=== PATIENT | male | born 1995 | race African-American/Black ===

== ENCOUNTER 2017-01-16 17:37 | Inpatient (IN) | payer OTHER ==
[~2017-01-16] VITALS: Ht 190.5 cm; Wt 64.0 kg
[2017-01-16 17:38] VITALS: BP 182/88; PULSE 124; RESP 20; TEMP 99; O2SAT 99
[2017-01-16 18:29] VITALS: BP 144/79; PULSE 110; RESP 21; O2SAT 100
--- NOTE | 2017-01-16 19:27 | RADRPT ---
EXAM DATE/TIME: 01/16/2017 19:16 [place] COMPARISON: No previous studies available for comparison. INDICATIONS : Altered mental status. RADIATION DOSE: 41.11 CTDIvol (mGy) MEDICAL HISTORY : None SURGICAL HISTORY : None. ENCOUNTER: Initial ACUITY: 1 day PAIN SCALE: 0/10 LOCATION: cranial TECHNIQUE: Multiple contiguous axial images were obtained of the head. Using automated exposure control and adj ustment of the mA and/or kV according to patient size, radiation dose was kept as low as reasonably a chievable to obtain optimal diagnostic quality images. FINDINGS: CEREBRUM: The ventricles are normal for age. No evidence of midline shift, mass lesion, hemorrhage or acute in farction. No extra-axial fluid collections are seen. POSTERIOR FOSSA: The cerebellum and brainstem are intact. The 4th ventricle is midline. The cerebellopontine angle i s unremarkable. EXTRACRANIAL: The visualized portion of the orbits is intact. SKULL: The calvaria is intact. No evidence of skull fracture. CONCLUSION: Normal examination. Jay Ferrari MD on January 16, 2017 at 19:26 Board Certified Radiologist. This report was verified electronically.
[2017-01-16 19:30] LABS: AUTOMATED NEUTROPHIL # 8.1 TH/MM3 (1.8-7.7); BASOPHIL % 0.2 % (0.0-2.0); EOSINOPHIL % 0.1 % (0.0-4.0); HEMATOCRIT 42.6 % (39.0-51.0); HEMO FLAGS DIFF FINAL; LYMPH % 10.2 % (9.0-44.0); MEAN CORPUSCULAR HEMOGLOBIN 30.3 PG (27.0-34.0); MEAN CORPUSCULAR HGB CONC 33.7 % (32.0-36.0); MONO % 9.6 % (0.0-8.0); NEUT % 79.9 % (16.0-70.0); PLATELET COUNT 243 TH/MM3 (150-450); RED BLOOD COUNT 4.74 MIL/MM3 (4.50-5.90); RED CELL DISTRIBUTION WIDTH 12.7 % (11.6-17.2); WHITE BLOOD COUNT 10.2 TH/MM3 (4.0-11.0)
--- NOTE | 2017-01-16 19:31 | PD ---
HPI Chief Complaint: Psychiatric Symptoms Time Seen by Provider: 18:27 Travel History International Travel<30 days: No Contact w/Intl Traveler<30days: No Traveled to known affect area: No History of Present Illness HPI This is a 21-year-old male who presents to the emergency department accompanied by his parents with altered mental status. The patient over the past week recently watched the movie [employer] at school and ever since then has been very paranoid and delusional his father. He has been worried that there are going to be racial assaults on his family and today his father saw him pack up his backpack and try to get his sisters to leave the house. His father reports that when he was younger he took him to be evaluated for depression but over the past week he's been increasingly delusional and he's concerned that he's having a psychiatric break. The father himself has a history of bipolar disorder. PFSH Past Medical History Medical History: Denies Significant Hx Hx Anticoagulant Therapy: No Cardiovascular Problems: No Chemotherapy: No Cerebrovascular Accident: No Diabetes: No Respiratory: No Past Surgical History Surgical History: No Previous Surgery Social History Alcohol Use: No Tobacco Use: No Substance Use: No Allergies-Medications (Allergen,Severity, Reaction): Coded Allergies: PEANUTS (Verified Allergy, Unknown, 01/16/17) Penicillin (Verified Allergy, Unknown, 01/16/17) Reported Meds & Prescriptions Reported Meds & Active Scripts Active No Active Prescriptions or Reported Medications Review of Systems Except as stated in HPI: all other systems reviewed are Neg Physical Exam Narrative GENERAL:Well appearing, no acute distress SKIN: Warm and dry. HEAD: Atraumatic. Normocephalic. EYES: Pupils equal and round. No injection or drainage. ENT: Moist mucous membranes NECK: Trachea midline. CARDIOVASCULAR: Regular rate and rhythm. No murmur appreciated. RESPIRATORY: Clear to auscultation. Breath sounds equal bilaterally. GASTROINTESTINAL: Abdomen soft, non-tender, nondistended. MUSCULOSKELETAL: No obvious deformities. NEUROLOGICAL: Awake and alert. No obvious cranial nerve deficits. PSYCHIATRIC: Flat affect, delusional and paranoid Data Data Last Documented VS Vital Signs Date Time Temp Pulse Resp B/P Pulse Ox O2 Delivery O2 Flow Rate FiO2 01/16/17 18:29 110 21 144/79 100 Room Air 01/16/17 17:38 99.0 Orders Complete Blood Count With Diff (01/16/17 18:27) Basic Metabolic Panel (Bmp) (01/16/17 18:27) ^ Insert Iv (01/16/17 18:27) Alcohol (Ethanol) (01/16/17 18:27) Drug Screen, Random Urine (01/16/17 18:27) Ct Brain W/O Iv Contrast(Rout) (01/16/17 ) Thyroid Stimulating Hormone (01/16/17 18:45) MDM Medical Decision Making Medical Screen Exam Complete: Yes Emergency Medical Condition: Yes Differential Diagnosis Bipolar disorder, schizophrenia, psychosis, substance intoxication Narrative Course This is a 21-year-old male who presents to the emergency department with increasing paranoia and delusions over the past week. There is a family history of bipolar disorder. Patient was placed on a monitor and an IV was established. Labs will be obtained and a CT will be obtained and the patient will be evaluated by psychiatry. Scripts No Active Prescriptions or Reported Meds Richelle Heart MD Jan 16, 2017 19:31
[2017-01-16 19:51] LABS: ANION GAP 9 MEQ/L (5-15); BICARBONATE 25.6 MEQ/L (21.0-32.0); BLOOD UREA NITROGEN 10 MG/DL (7-18); CHLORIDE 104 MEQ/L (98-107); GLOMERULAR FILTRATION RATE 119 ML/MIN (>89); POTASSIUM 3.9 MEQ/L (3.5-5.1); SODIUM (NA) 139 MEQ/L (136-145)
[2017-01-16 19:55] LABS: AMPHETAMINE, URINE NEG (NEG); BARBITURATES, URINE NEG (NEG); COCAINE, URINE NEG (NEG)
--- NOTE | 2017-01-16 20:21 | PD ---
Data Data Last Documented VS Vital Signs Date Time Temp Pulse Resp B/P Pulse Ox O2 Delivery O2 Flow Rate FiO2 01/16/17 18:29 110 21 144/79 100 Room Air 01/16/17 17:38 99.0 Orders Complete Blood Count With Diff (01/16/17 18:27) Basic Metabolic Panel (Bmp) (01/16/17 18:27) ^ Insert Iv (01/16/17 18:27) Alcohol (Ethanol) (01/16/17 18:27) Drug Screen, Random Urine (01/16/17 18:27) Ct Brain W/O Iv Contrast(Rout) (01/16/17 ) Thyroid Stimulating Hormone (01/16/17 18:45) Psych Screen (01/16/17 19:31) Labs Laboratory Tests Test 01/16/17 18:45 White Blood Count 10.2 TH/MM3 Red Blood Count 4.74 MIL/MM3 Hemoglobin 14.4 GM/DL Hematocrit 42.6 % Mean Corpuscular Volume 90.0 FL Mean Corpuscular Hemoglobin 30.3 PG Mean Corpuscular Hemoglobin 33.7 % Concent Red Cell Distribution Width 12.7 % Platelet Count 243 TH/MM3 Mean Platelet Volume 8.0 FL Neutrophils (%) (Auto) 79.9 % Lymphocytes (%) (Auto) 10.2 % Monocytes (%) (Auto) 9.6 % Eosinophils (%) (Auto) 0.1 % Basophils (%) (Auto) 0.2 % Neutrophils # (Auto) 8.1 TH/MM3 Lymphocytes # (Auto) 1.0 TH/MM3 Monocytes # (Auto) 1.0 TH/MM3 Eosinophils # (Auto) 0.0 TH/MM3 Basophils # (Auto) 0.0 TH/MM3 CBC Comment DIFF FINAL Differential Comment Sodium Level 139 MEQ/L Potassium Level 3.9 MEQ/L Chloride Level 104 MEQ/L Carbon Dioxide Level 25.6 MEQ/L Anion Gap 9 MEQ/L Blood Urea Nitrogen 10 MG/DL Creatinine 0.96 MG/DL Estimat Glomerular Filtration 119 ML/MIN Rate Random Glucose 111 MG/DL Calcium Level 9.3 MG/DL Thyroid Stimulating Hormone 1.600 uIU/ML 3rd Gen Urine Opiates Screen NEG Urine Barbiturates Screen NEG Urine Amphetamines Screen NEG Urine Benzodiazepines Screen NEG Urine Cocaine Screen NEG Urine Cannabinoids Screen NEG Ethyl Alcohol Level LESS THAN 3 MG/DL MDM Supervised Visit with DINORAH: No Narrative Course This report is in ERROR Please disregard this report and all prior copies ! This report is in ERROR Please disregard this report and all prior copies ! This report is in ERROR Please disregard this report and all prior copies ! Scripts No Active Prescriptions or Reported Meds Quoc Sarmiento MD Jan 16, 2017 20:21
--- NOTE | 2017-01-16 20:23 | PD ---
Data Data Last Documented VS Vital Signs Date Time Temp Pulse Resp B/P Pulse Ox O2 Delivery O2 Flow Rate FiO2 01/16/17 18:29 110 21 144/79 100 Room Air 01/16/17 17:38 99.0 Orders Complete Blood Count With Diff (01/16/17 18:27) Basic Metabolic Panel (Bmp) (01/16/17 18:27) ^ Insert Iv (01/16/17 18:27) Alcohol (Ethanol) (01/16/17 18:27) Drug Screen, Random Urine (01/16/17 18:27) Ct Brain W/O Iv Contrast(Rout) (01/16/17 ) Thyroid Stimulating Hormone (01/16/17 18:45) Psych Screen (01/16/17 19:31) Labs Laboratory Tests Test 01/16/17 18:45 White Blood Count 10.2 TH/MM3 Red Blood Count 4.74 MIL/MM3 Hemoglobin 14.4 GM/DL Hematocrit 42.6 % Mean Corpuscular Volume 90.0 FL Mean Corpuscular Hemoglobin 30.3 PG Mean Corpuscular Hemoglobin 33.7 % Concent Red Cell Distribution Width 12.7 % Platelet Count 243 TH/MM3 Mean Platelet Volume 8.0 FL Neutrophils (%) (Auto) 79.9 % Lymphocytes (%) (Auto) 10.2 % Monocytes (%) (Auto) 9.6 % Eosinophils (%) (Auto) 0.1 % Basophils (%) (Auto) 0.2 % Neutrophils # (Auto) 8.1 TH/MM3 Lymphocytes # (Auto) 1.0 TH/MM3 Monocytes # (Auto) 1.0 TH/MM3 Eosinophils # (Auto) 0.0 TH/MM3 Basophils # (Auto) 0.0 TH/MM3 CBC Comment DIFF FINAL Differential Comment Sodium Level 139 MEQ/L Potassium Level 3.9 MEQ/L Chloride Level 104 MEQ/L Carbon Dioxide Level 25.6 MEQ/L Anion Gap 9 MEQ/L Blood Urea Nitrogen 10 MG/DL Creatinine 0.96 MG/DL Estimat Glomerular Filtration 119 ML/MIN Rate Random Glucose 111 MG/DL Calcium Level 9.3 MG/DL Thyroid Stimulating Hormone 1.600 uIU/ML 3rd Gen Urine Opiates Screen NEG Urine Barbiturates Screen NEG Urine Amphetamines Screen NEG Urine Benzodiazepines Screen NEG Urine Cocaine Screen NEG Urine Cannabinoids Screen NEG Ethyl Alcohol Level LESS THAN 3 MG/DL [facility] Medical Record Reviewed: Yes Supervised Visit with DINORAH: No Narrative Course CBC & BMP Diagram 01/16/17 18:45 TSH 1.6 Urine drug screen negative Ethyl EtOH less than 3 Patient is resting comfortably at about 8:30 PM. Evaluation by psychiatry service appreciated as we can find no abnormality based on a routine medical screening exam. Diagnosis Primary Impression: Paranoia Additional Impression: Delusion Scripts No Active Prescriptions or Reported Meds Quoc Sarmiento MD Jan 16, 2017 20:23
[2017-01-16] MEDS ORDERED: HALOPERIDOL LACTATE 5 MG/ML AMP IM ONE (21:45)
[2017-01-16 21:55] VITALS: BP 135/69; PULSE 150; RESP 20; O2SAT 97
[2017-01-16 22:33] VITALS: BP 124/68; PULSE 124; RESP 18; TEMP 98.8; O2SAT 100
[2017-01-16] MEDS ORDERED: ALUMINUM/MAGNESIUM/SIMETH 30 ML CUP PO PRN (23:00)
[2017-01-16] MEDS ORDERED: diphenhydrAMINE HCL 50 MG/ML VIAL IM PRN (23:00)
[2017-01-16] MEDS ORDERED: MAGNESIUM HYDROXIDE SUSP 30 ML CUP PO PRN (23:00)
[2017-01-16] MEDS ORDERED: hydrOXYzine HCL 50 MG TAB PO PRN (23:00)
[2017-01-16] MEDS ORDERED: LORazepam 2 MG/ML VIAL IM PRN (23:00)
[2017-01-16] MEDS ORDERED: LORazepam 1 MG TAB PO PRN (23:00)
[2017-01-16] MEDS ORDERED: ACETAMINOPHEN 325 MG TAB PO PRN (23:00)
[2017-01-16] MEDS ORDERED: diphenhydrAMINE HCL 50 MG CAP PO PRN (23:00)
[2017-01-16 23:51] VITALS: BP 135/70; PULSE 80; RESP 18; TEMP 98.2; O2SAT 97
[2017-01-17 05:37] VITALS: BP 140/76; PULSE 100; RESP 18; TEMP 97.9; O2SAT 98
[2017-01-17] MEDS ORDERED: risperiDONE 0.5 MG TAB PO SCH (07:00)
[2017-01-17 09:37] LABS: ALKALINE PHOSPHATASE 58 U/L (45-117); ALT (GPT) 17 U/L (12-78); ANION GAP 9 MEQ/L (5-15); AST (GOT) 15 U/L (15-37); BICARBONATE 26.4 MEQ/L (21.0-32.0); BLOOD UREA NITROGEN 9 MG/DL (7-18); CHLORIDE 105 MEQ/L (98-107); FREE T4 1.35 NG/DL (0.76-1.46); GLOMERULAR FILTRATION RATE 123 ML/MIN (>89); LDL CHOLESTEROL 79 MG/DL (0-99); MAGNESIUM 2.2 MG/DL (1.5-2.5); POTASSIUM 4.2 MEQ/L (3.5-5.1); SODIUM (NA) 140 MEQ/L (136-145); TOTAL BILIRUBIN ADULT 0.8 MG/DL (0.2-1.0)
[2017-01-17 10:25] LABS: HEMOGLOBIN A1a 1.4 %; HEMOGLOBIN A1b 0.9 %; HEMOGLOBIN Ao 86.3 %; HEMOGLOBIN F 0.7 %; HEMOGLOBIN LA1C 1.8 %; HEMOGLOBIN P3 3.4 %
--- NOTE | 2017-01-17 10:29 | HHI.HP ---
Provisional Diagnosis Admission Date Jan 16, 2017 at 22:41 [place] I. F: 21: Psychosis: paranoid [place] II. def [place] III. -- [place] IV. -- [place] V. GAF : 35 Certification of Person's Competence To Provide Express and Informed Consent I have personally examined Josafat SweetJr , a person being served at [facility] on, Jan 17, 2017 10:19. Express and informed consent means consent voluntarily given in writing, by a competent person, after sufficient explanation and disclosure of the subject matter involved to enable the person to make a knowing and willful decision without any element of force, fraud, deceit, duress, or other form of constraint or coercion. This person is 18 years of age or older, is not now known to be incompetent to consent to treatment with a guardian advocate, and does not have a health care surrogate or proxy currently making medical treatment decisions. I have found this person to be one of the following: [] Competent to provide express and informed consent, as defined above, for voluntary admission to this facility and is competent to provide express and informed consent for treatment. He/she has the consistent capacity to make well reasoned, willful, and knowing decisions concerning his or her medical or mental health treatment. The person fully and consistently understands the purpose of the admission for examination/placement and is fully capable of personally exercising all rights assured [place] [] Incompetent to provide express and informed consent to voluntary admission, and this is incompetent to provide express and informed consent to treatment. The person must be transferred to involuntary status and a petition for a guardian advocate filed with the Circuit Court. [] Refusing to provide express and informed consent to voluntary admission but is competent to provide express and informed consent for treatment. The person must be discharged or transferred to involuntary status. Form shall be completed within 24 hours of a person's arrival at the receiving facility and filed in the clinical record of each person: 1. Admitted on a voluntary basis 2. Permitted to provide express and informed consent to his/her own treatment 3. Allowed to transfer from involuntary to voluntary status 4. Prior to permitting a person to consent to his or her own treatment after having been previously found incompetent to consent to treatment. History of Present Illness Capacity: Lacks Capacity HPI 21 y/o male, brought in by his parents for " bizarre behavior". Per family, pt. recently had an episode where he was paranoid, thought people are trying to break into the house . Pt. locked his sister and mother in the bathroom believed his father was being held at gun point . H.o mental illness on -paternal side of the family Pt. was placed under a Owens Act by the ED physician DR. Sarmiento, as pt. was unable to comprehend basic commands and speaking words salad. Upon evaluation, pt. stated "I have the fear of unknown. I have been upset about the election and racism. I have had panic attacks but I can control it". Pt. was unable to give any relevant or coherent information- He is alert, awake and oriented to time place and person, does not seem to be responding to any internal stimuli- He is pleasant and cooperative, No past psychiatric history reported, pt. denies any alcohol or substance abuse. , Pt. resides with parents and siblings, attends [employer]. Past Psych History Psychological trauma history None reported Violence risk - others (6 mos) None reported Violence risk - self (6 mos) None reported Substance Abuse History Drugs/Alcohol past 12 months Pt. and family denies any alcohol or substance abuse . Urine Drug screen : Negative, Past Family Social History Coded Allergies: PEANUTS (Verified Allergy, Unknown, 01/16/17) Penicillin (Verified Allergy, Unknown, 01/16/17) Active Scripts Risperidone (Risperdal)0.5 Mg Tab0.5 Mg PO TID #30 TAB Ref 1 Prov:Yoandy Lau MD 01/19/17 Benztropine 2 Mg Tab2 Mg PO DAILY PRN (EXTRA PYRAMIDAL SYMPTOMS) #10 TAB Ref 1 Prov:Yoandy Lau MD 01/19/17 Reported Medications Risperidone 0.5 Mg Tab0.5 Mg PO TID #30 TAB Ref 1 01/19/17 Benztropine 2 Mg Tab2 Mg PO DAILY PRN (EXTRA PYRAMIDAL SYMPTOMS) #10 TAB Ref 0 01/19/17 Current Medications Medications (Trade) Dose Ordered Sig/[place]xton Route Start Time Stop Time Status Last Admin (Ativan) 1 mg Q6H PRN PO 01/16/17 23:00 01/17/17 03:28 (Ativan Inj) 1 mg Q6H PRN IM 01/16/17 23:00 (Atarax) 50 mg Q6H PRN PO 01/16/17 23:00 (Benadryl) 50 mg Q6H PRN PO 01/16/17 23:00 (Benadryl Inj) 50 mg Q6H PRN IM 01/16/17 23:00 (Tylenol) 650 mg Q4H PRN PO 01/16/17 23:00 (Milk Of Magnesia Liq) 30 ml DAILY PRN PO 01/16/17 23:00 (Mag-Al Plus Susp Liq) 30 ml Q6H PRN PO 01/16/17 23:00 (risperDAL) 0.5 mg DAILY@07,19 PO 01/17/17 07:00 Hold (Catapres) 0.2 mg HS PO 01/17/17 21:00 Future Hold Family History Mental health illness: Paternal side Social History Pt. resides with his parents and siblings. He attends [employer]. Patient's Strengths (min. 2) Verbal Healthy Physical Exam GENERAL:Well appearing, no acute distress SKIN: Warm and dry. HEAD: Atraumatic. Normocephalic. EYES: Pupils equal and round. No injection or drainage. ENT: Moist mucous membranes NECK: Trachea midline. CARDIOVASCULAR: Regular rate and rhythm. No murmur appreciated. RESPIRATORY: Clear to auscultation. Breath sounds equal bilaterally. GASTROINTESTINAL: Abdomen soft, non-tender, nondistended. MUSCULOSKELETAL: No obvious deformities. NEUROLOGICAL: Awake and alert. No obvious cranial nerve deficits. PSYCHIATRIC: Flat affect, delusional and paranoid Vital Signs Vital Signs Date Time Temp Pulse Resp B/P Pulse Ox O2 Delivery O2 Flow Rate FiO2 01/17/17 05:37 97.9 100 18 140/76 98 01/16/17 22:33 Room Air Mental Status Examination Speech: Incoherent Orientation: x3 Thought Process: Loose Association Thought Content: Bizarre thinking, Paranoid Hallucination Type: None Suicidal Ideation: No Previous Suicide Attempts: No Homicidal Ideation: No Previous Homicide Attempts: No Insight: Poor Judgement: Poor Affect: Euthymic Mood: Euthymic Motor Activity: Normal gait Assessment & Plan Problem List: (1) Psychosis, paranoid ICD Code: F22 Assessment & Plan Rx; Risperdal 0.5 mg twice daily Clonidine 0.2 mg qhs Estimated LOS: To be determined. Robinson Islas MD Jan 17, 2017 10:29
[2017-01-17 11:50] LABS: AUTOMATED NEUTROPHIL # 4.6 TH/MM3 (1.8-7.7); BASOPHIL % 0.3 % (0.0-2.0); EOSINOPHIL % 0.4 % (0.0-4.0); HEMATOCRIT 41.9 % (39.0-51.0); HEMO FLAGS DIFF FINAL; LYMPH % 16.4 % (9.0-44.0); MEAN CELL VOLUME 89.7 FL (80.0-100.0); MEAN CORPUSCULAR HEMOGLOBIN 30.1 PG (27.0-34.0); MEAN CORPUSCULAR HGB CONC 33.5 % (32.0-36.0); MONO % 10.5 % (0.0-8.0); NEUT % 72.4 % (16.0-70.0); PLATELET COUNT 258 TH/MM3 (150-450); RED BLOOD COUNT 4.67 MIL/MM3 (4.50-5.90); RED CELL DISTRIBUTION WIDTH 12.6 % (11.6-17.2); WHITE BLOOD COUNT 6.3 TH/MM3 (4.0-11.0)
[2017-01-17 17:12] VITALS: BP 117/57; PULSE 94; RESP 18; TEMP 97.4; O2SAT 100
[2017-01-17] MEDS ORDERED: cloNIDine HCL 0.2 MG TAB PO SCH (21:00)
[2017-01-18 05:18] LABS: BLOOD, URINE TRACE (NEG); GLUCOSE,URINE NEG (NEG); KETONE, URINE NEG (NEG); MUCUS URINE MANY /lpf (OCC); NITRITE,URINE NEG (NEG); PH, URINE 5.5 (5.0-8.5); RENAL EPITHELIAL CELLS <1 /hpf; URINE COLOR YELLOW (YELLW/STRAW)
[2017-01-18 05:19] LABS: COMMENT (UR) CULT NOT INDICATED; CULTURE IF INDICATED CULT NOT INDICATED
[2017-01-18 05:57] VITALS: BP 132/62; PULSE 100; RESP 18; TEMP 97.6; O2SAT 98
[2017-01-18] MEDS: risperiDONE 0.5 MG TAB PO SCH ×2 (12:25→17:20)
[2017-01-18 15:33] VITALS: BP 119/62; PULSE 102; RESP 18; TEMP 98.2; O2SAT 97
--- NOTE | 2017-01-18 20:33 | MH ---
cc: GUEVARA ROSS M.D. DATE OF ADMISSION 01/16/2017 HISTORY This 21-year-old black male was brought to the emergency room voluntarily by his parents where the Owens ACT was initiated by Dr. Sarmiento. He was initially evaluated by Dr. Islas and later transferred to my service as he was covered under [facility]. Prior to this I had reviewed the case with her. Apparently he has been increasingly paranoid believing that his father was held at [facility] and his mother and siblings were going to be harmed and as such he locked them up in the bathroom. He was started on Risperdal by Dr. Islas. According to nursing staff since admission he has been "clearing up" i.e., has not been as delusional. Since admission he has not exhibited any aggressive or self-destructive behavior nor has he made any threats of harm to self or others. The nursing staff also reported that his parents feel that he has stabilized enough and are requesting discharge. I attempted to contact his father and left a message on both the telephone numbers provided by him. Present during this evaluation was DWAYNE Goldberg. At the time of this evaluation Mr. Sweet was somewhat apprehensive and guarded. When asked what his understanding of the reason for this hospitalization, he responded "I have been worried about the elections. I have fear of unknown. There are a lot of good people in this world". When the available information regarding the paranoid delusions were shared with him, he reluctantly acknowledged but followed it up by saying that "it probably was my imagination." He acknowledged since being in the hospital he has been feeling better. He denied experiencing any auditory or visual hallucinations. He denied persistent feelings of sadness, however, acknowledged experiencing initial and middle insomnia. He denied any change in his appetite, memory or concentration. He denied entertaining any suicidal or homicidal ideations or intent. He denied any alcohol or drug abuse. His urine drug screen was negative. On further questioning he did not give any history suggestive of bipolar affective disorder. PAST PSYCHIATRIC HISTORY Well documented by Dr. Islas. PAST MEDICAL HISTORY Well documented by Dr. Islas. FAMILY HISTORY Well documented by Dr. Islas. PERSONAL HISTORY Well documented by Dr. Islas. Suffice to say that there is history of mental illness on the father's side of the family. Mr. Sweet is currently attending [facility]. As mentioned he denied any alcohol or drug abuse. He denied any history of physical or sexual trauma. He denied any history of involvement with the law. CLINICAL OBSERVATION AND MENTAL STATUS EXAMINATION At the time of this evaluation he presented as a casually dressed, reasonably well-groomed, bespectacled black male who looked his stated age. He was somewhat apprehensive and guarded and quite vague in his responses to questions. No overt anger or hostility was noticed. No bizarre behavioral or mannerisms were noticed. His speech was mostly coherent. His affect was somewhat blunted, appropriate. Subjectively he described his mood as "I am feeling okay now". His thoughts were better organized compared to his presentation in the emergency room where he reportedly exhibited looseness of associations. Delusions of persecution noted at the time of evaluation in the emergency room were not much noticeable at this time. No auditory or visual hallucinations were noticed or reported. He denied active suicidal or homicidal ideations or intent at this time. He denied any previous suicide attempts. Cognitive functions. he was alert, oriented to time, place, person and situation. His memory in the immediate, recent and remote area was within normal limits. His judgment and insight was felt to be fair. Review of systems and physical examination were not done as this has been done in the emergency room and no acute medical issues were identified. No gross neurological deficits noticed at this time. DIAGNOSTIC IMPRESSION [place] I: Psychosis NOS. Possible schizophrenia from disorder. [place] II: No diagnosis. [place] III: No diagnosis. [place] IV: No psychosocial stressor identified. [place] V: Current GAF score 30. FORMULATION AND TREATMENT PLAN He will be continued on the Risperdal as this has helped resolve the psychotic symptoms. However, the dose will be increased. I have attempted to contact the parents regarding the discharge plans and left a message on the voice mail. Discharge plans will be finalized after input from them. In the meantime he will continue to participate in various unit activities i.e. occupational therapy, recreational therapy, group therapy. His identified problem is: Psychosis. His assets are: 1. He is verbal. 2. Good physical health. 3. Supportive parents. His estimated length of stay is 3-5 days. MD THAD Mosley/NORA /7:09 PM /8:19 PM
[2017-01-19 05:49] VITALS: BP 141/83; PULSE 96; RESP 18; TEMP 97; O2SAT 97
[2017-01-19] MEDS: risperiDONE 0.5 MG TAB PO SCH ×2 (08:46→13:00)
[2017-01-19] MEDS ORDERED: RISP0.5T20 PO (13:43)
[2017-01-19] MEDS ORDERED: BENZ2TAB PO ×2 (13:43→14:00)
[2017-01-19] MEDS ORDERED: BENZTROPINE MESYLATE 2 MG TAB PO PRN (14:00)
[2017-01-19] MEDS ORDERED: RISP0.5T2 PO (14:02)
--- NOTE | 2017-01-19 14:44 | MD ---
cc: GUEVARA ROSS ADMISSION DATE: 01/16/2017 DISCHARGE DATE: 01/19/2017 ADMISSION DIAGNOSIS [place] I: Psychosis NOS. Possible schizophreniform disorder. [place] II: No diagnosis. [place] III: No diagnosis. [place] IV: No psychosocial stressor identified. [place] V: Current GAF score 30 DISCHARGE DIAGNOSES [place] I: Psychosis NOS. Possible schizophreniform disorder. [place] II: No diagnosis. [place] III: No diagnosis. [place] IV: No psychosocial stressor identified. [place] V: Current GAF score 60. HISTORY: This 21-year-old black male was brought to the emergency room voluntarily by his parents with the Owens ACT was initiated by Dr. Sarmiento. He reportedly has been increasingly delusional believing that his family members were going to be harmed, during his evaluation in the emergency room by psychiatric screener he was very disorganized, nonsensical. He was initially admitted to Dr. Islas service and then was transferred to my service. Please refer to my initial evaluation for details. LABORATORY FINDINGS CBC with differential unremarkable. Vitamin B12, T4, TSH, normal. Liver enzymes normal. Urine drug screen negative. Routine urinalysis unremarkable. CT scan of the head unremarkable. ASSESSMENT AND PLAN: When initially evaluated he displayed disorganized thinking and delusions of persecution i.e. believed his father was kept hostage at gunpoint and that there was seen impending harm to his family members who he locked up in the bathroom. He was started on Risperdal to which he responded quite well and the psychotic symptoms subsided. His thoughts became well organized and reality based. During his stay in the hospital he was very compliant with the treatment plan and did not exhibit any aggressive self-destructive behavior. I had telephone conversation with his father today. He seemed very supportive. He himself suffers from bipolar affective disorder and is currently under care of Dr. Rick Davidson. He says that since hospitalization, the current episode was precipitated by him watching a movie [place], where racial violence was depicted which according to him the patient was unable to handle. According to him, he believed that the [employer] were after him and his family. The patient as well as the father requested discharge today. A note to this affect is in the chart. The father seemed quite motivated to seek him outpatient treatment, which was recommended to him strongly. I recommended that he be observed for two or three more days however, the father as well as the patient were not supportive of it. I reviewed the patient's condition with the treatment team members and it was felt that his psychotic symptoms have subsided, he was not verbalizing any suicidal or homicidal ideations and as such no longer meets the Owens ACT criteria. As such he is being discharged home with recommendation to continue on Risperdal 0.5 mg one p.o. t.i.d. #30 with one refill. Cogentin 2 mg one p.o. daily p.r.n. for EPS #10 with one refill. He will continue outpatient psychiatric followup with [facility] and medical followup with his primary care physician. MD THAD Mosley/osmel /1:53 PM /12:05 PM
== END 2017-01-19 14:45 | disposition home or self-care (01) | DRG 885 ==
LOC: NEPC 17:37 → NEDA 22:41 → H270 23:15
PROVIDERS: ADMIT Psychiatry & Neurology Psychiatry; ATTEND Psychiatry & Neurology Psychiatry
DX: F22 Delusional disorders (principal); F29 Unspecified psychosis not due to a substance or known physiological condition; F41.0 Panic disorder [episodic paroxysmal anxiety]
CPT/HCPCS: 70450; 80048; 80053; 80061; 80307; 80320; 81001; 82306; 82607; 83036; 83735; 84100; 84439; 84443; 85025; 96372; J1630; Q0163

== ENCOUNTER 2017-12-31 09:14 | Inpatient (IN) | payer OTHER ==
[~2017-12-31] VITALS: Ht 182.9 cm; Wt 61.2 kg
[~2017-12-31 09:14] MED LIST: BENZ2TAB PO; RISP0.5T2 PO; RISP0.5T25 PO
[2017-12-31 09:16] VITALS: BP 155/103; PULSE 105; RESP 18; TEMP 98.7; O2SAT 100
[2017-12-31] MEDS ORDERED: OLANZapine IM 10 MG VIAL IM ONE (10:00)
--- NOTE | 2017-12-31 10:13 | PD ---
HPI Chief Complaint: Psychiatric Symptoms Time Seen by Provider: 09:43 Travel History International Travel<30 days: No Contact w/Intl Traveler<30days: No Traveled to known affect area: No History of Present Illness HPI Or any 2-year-old male presents with his sister and mother for evaluation of altered mental status. For the past 3 days the patient has been making bizarre statements, lacking sleep, responding to internal stimuli. The family reports that he had a similar instance of psychosis one year ago in which he was hospitalized psychiatrically here at [facility]. He was started on Risperdal with significant improvement of his symptoms. Early he only takes hydroxyzine and he follows with psychiatrist Dr. Wang. He has been stable up until this point. The family is unaware of any drug use. He has had no fevers or recent illness. The patient is currently complaining of thirst. He has no other complaints at this time. PFSH Past Medical History Hx Anticoagulant Therapy: No Cardiovascular Problems: No Chemotherapy: No Cerebrovascular Accident: No Diabetes: No Respiratory: Yes (asthma) Social History Alcohol Use: No Tobacco Use: No Substance Use: No Allergies-Medications (Allergen,Severity, Reaction): Coded Allergies: peanut (Unverified Allergy, Unknown, 12/31/17) penicillin G (Unverified Allergy, Unknown, 12/31/17) Uncoded Allergies: SEAFOOD (Adverse Reaction, Mild, NAUSEA, 12/31/17) Reported Meds & Prescriptions Reported Meds & Active Scripts Active Reported Hydroxyzine HCl 10 Mg Tab Unknown Dose PO DIRECTED Review of Systems Except as stated in HPI: all other systems reviewed are Neg Physical Exam Narrative GENERAL: Well-developed well-nourished male who is responding to commands appropriately. His vital signs of been reviewed. SKIN: Warm and dry. HEAD: Atraumatic. Normocephalic. EYES: Pupils equal and round. No scleral icterus. No injection or drainage. ENT: No nasal bleeding or discharge. Mucous membranes pink and moist. NECK: Trachea midline. No JVD. CARDIOVASCULAR: Regular rate and rhythm. No murmur appreciated. RESPIRATORY: No accessory muscle use. Clear to auscultation. Breath sounds equal bilaterally. GASTROINTESTINAL: Abdomen soft, non-tender, nondistended. Hepatic and splenic margins not palpable. MUSCULOSKELETAL: No obvious deformities. No clubbing. No cyanosis. No edema. NEUROLOGICAL: Awake and alert. No obvious cranial nerve deficits. Motor grossly within normal limits. Normal speech. PSYCHIATRIC: appears to be responding to internal stimuli, insight and judgment appear limited. Data Data Last Documented VS Vital Signs Date Time Temp Pulse Resp B/P (MAP) Pulse Ox O2 Delivery O2 Flow Rate FiO2 12/31/17 09:16 98.7 105 18 155/103 (120) 100 Orders Orders Complete Blood Count With Diff (12/31/17 09:50) Comprehensive Metabolic Panel (12/31/17 09:50) Thyroid Stimulating Hormone (12/31/17 09:50) Iv Access Insert/Monitor (12/31/17 09:50) Psych Screen (12/31/17 09:50) Drug Screen, Random Urine (12/31/17 09:50) Alcohol (Ethanol) (12/31/17 09:50) Olanzapine Inj (Zyprexa Inj) (12/31/17 10:00) Potassium Chloride (Kcl) (12/31/17 11:00) Potassium Chloride (Kcl) (12/31/17 18:00) Labs Laboratory Tests Test 12/31/17 10:07 12/31/17 10:08 Urine Opiates Screen NEG Urine Barbiturates Screen NEG Urine Amphetamines Screen NEG Urine Benzodiazepines Screen NEG Urine Cocaine Screen NEG Urine Cannabinoids Screen NEG White Blood Count 5.6 TH/MM3 Red Blood Count 4.69 MIL/MM3 Hemoglobin 14.1 GM/DL Hematocrit 41.5 % Mean Corpuscular Volume 88.4 FL Mean Corpuscular Hemoglobin 30.1 PG Mean Corpuscular Hemoglobin Concent 34.1 % Red Cell Distribution Width 12.9 % Platelet Count 259 TH/MM3 Mean Platelet Volume 7.7 FL Neutrophils (%) (Auto) 51.5 % Lymphocytes (%) (Auto) 30.8 % Monocytes (%) (Auto) 14.1 % Eosinophils (%) (Auto) 2.8 % Basophils (%) (Auto) 0.8 % Neutrophils # (Auto) 2.9 TH/MM3 Lymphocytes # (Auto) 1.7 TH/MM3 Monocytes # (Auto) 0.8 TH/MM3 Eosinophils # (Auto) 0.2 TH/MM3 Basophils # (Auto) 0.0 TH/MM3 CBC Comment DIFF FINAL Differential Comment Blood Urea Nitrogen 6 MG/DL Creatinine 0.85 MG/DL Random Glucose 92 MG/DL Total Protein 8.1 GM/DL Albumin 4.2 GM/DL Calcium Level 8.5 MG/DL Alkaline Phosphatase 54 U/L Aspartate Amino Transf (AST/SGOT) 20 U/L Alanine Aminotransferase (ALT/SGPT) 44 U/L Total Bilirubin 0.5 MG/DL Sodium Level 139 MEQ/L Potassium Level 3.1 MEQ/L Chloride Level 104 MEQ/L Carbon Dioxide Level 26.3 MEQ/L Anion Gap 9 MEQ/L Estimat Glomerular Filtration Rate 135 ML/MIN Thyroid Stimulating Hormone 3rd Gen 1.600 uIU/ML Ethyl Alcohol Level LESS THAN 3 MG/DL MDM Medical Decision Making Medical Screen Exam Complete: Yes Emergency Medical Condition: Yes Medical Record Reviewed: Yes Differential Diagnosis Schizophrenia, encephalitis, acute psychosis, schizoaffective disorder, bipolar disorder Narrative Course 22-year-old male presents for evaluation of bizarre behavior and psychosis. He had a similar episode one year ago and responded well to antipsychotics. The patient will be given Zyprexa here. Lab work was ordered revealing hyperkalemia. The patient was given 40 mEq of oral potassium chloride and another 40 mEq have been ordered for this evening. Upon reexamination he is resting comfortably and the family members report that this is the first time that he has slept in the past 3 days. He is medically cleared for psychiatric disposition. Diagnosis Primary Impression: Acute psychosis Braulio Carrion Dec 31, 2017 10:13
[2017-12-31] MEDS ORDERED: HYDR-755 PO (10:18)
[2017-12-31 10:37] LABS: AUTOMATED NEUTROPHIL # 2.9 TH/MM3 (1.8-7.7); BASOPHIL % 0.8 % (0.0-2.0); EOSINOPHIL # 0.2 TH/MM3 (0-0.4); EOSINOPHIL % 2.8 % (0.0-4.0); HEMATOCRIT 41.5 % (39.0-51.0); HEMOGLOBIN 14.1 GM/DL (13.0-17.0); LYMPH % 30.8 % (9.0-44.0); LYMPHOCYTE # 1.7 TH/MM3 (1.0-4.8); MEAN CELL VOLUME 88.4 FL (80.0-100.0); MEAN CORPUSCULAR HEMOGLOBIN 30.1 PG (27.0-34.0); MEAN CORPUSCULAR HGB CONC 34.1 % (32.0-36.0); MEAN PLATELET VOLUME 7.7 FL (7.0-11.0); MONO % 14.1 % (0.0-8.0); MONOCYTE # 0.8 TH/MM3 (0-0.9); NEUT % 51.5 % (16.0-70.0); PLATELET COUNT 259 TH/MM3 (150-450); RED BLOOD COUNT 4.69 MIL/MM3 (4.50-5.90); RED CELL DISTRIBUTION WIDTH 12.9 % (11.6-17.2); WHITE BLOOD COUNT 5.6 TH/MM3 (4.0-11.0)
[2017-12-31 10:53] LABS: ALBUMIN 4.2 GM/DL (3.4-5.0); ALT (GPT) 44 U/L (12-78); AST (GOT) 20 U/L (15-37); BICARBONATE 26.3 MEQ/L (21.0-32.0); BLOOD UREA NITROGEN 6 MG/DL (7-18); CALCIUM 8.5 MG/DL (8.5-10.1); CHLORIDE 104 MEQ/L (98-107); CREATININE 0.85 MG/DL (0.60-1.30); GLOMERULAR FILTRATION RATE 135 ML/MIN (>89); GLUCOSE,RANDOM 92 MG/DL (74-106); SODIUM (NA) 139 MEQ/L (136-145)
[2017-12-31] MEDS ORDERED: POTASSIUM CHLORIDE 20 MEQ CONTROLLED RELEASE TAB PO ONE ×2 (11:00→18:00)
[2017-12-31 11:02] LABS: ALKALINE PHOSPHATASE 54 U/L (45-117); TOTAL BILIRUBIN ADULT 0.5 MG/DL (0.2-1.0); TOTAL PROTEIN 8.1 GM/DL (6.4-8.2)
[2017-12-31 14:00] VITALS: BP 146/86; PULSE 120; RESP 20; TEMP 99.8; O2SAT 99
[2017-12-31] MEDS ORDERED: ZIPRASIDONE MESYLATE 20 MG VIAL IM ONE (15:15)
[2017-12-31] MEDS ORDERED: diphenhydrAMINE HCL 50 MG/ML VIAL IM ONE (15:15)
--- NOTE | 2017-12-31 18:00 | PD ---
History of Present Illness Chief Complaint: Psychiatric Symptoms Time Seen by Provider: 14:48 Travel History International Travel<30 Days: No Contact w/Intl Traveler<30days: No Known affected area: No Legal Status Legal Status: Owens Act Owens Act Signed By: Graciela Solis Comment: DAYAMI Patiño History of Present Illness: History of Present Illness HPI 22-year-old year-old male who presents presents with his sister and mother for psychiatric evaluation. The family reports that for the past 3 days the patient has been making bizarre statements, lacking sleep, responding to internal stimuli. The family reports that he had a similar instance of psychosis one year ago in which he was hospitalized psychiatrically here at [facility]. He was started on Risperdal with significant improvement of his symptoms but has been taken off this medication for some unknown reason. Outpatient psychiatrist is Dr. Wang. EMR is reviewed. He was admitted to [facility] psychiatry in December 2016 and treated for psychosis NOS. Toxicology is negative for any substances of abuse. TSH 1.6. Random blood glucose 92. The patient is seen in J pod. He is observed wandering from room to room and telling us that" he needs to make sure that everyone is safe". He requires frequent redirection. He is also observed crawling on the floor as well as barging into another patient's room and beginning to chant and recite prayers while the patient is being interviewed. He required ETO. He appears internally preoccupied. Unable to engage him in a meaningful conversation and evaluation. PFSH Past Medical History Hx Anticoagulant Therapy: No Cardiovascular Problems: No Chemotherapy: No Cerebrovascular Accident: No Diabetes: No Respiratory: Yes (asthma) Psychiatric History Psychiatric History Hx Psychiatric Treatment: Admitted to [facility] in 2016 under the care of Dr. Chun. Was treated for psychosis. Presently a patient of Dr. Wang. Had been prescribed Risperdal in the past. History of Inpatient Treatment: Yes ([facility] 2016) Guns or firearms in home: No Social History Single, never . Lives with his mother and 2 sisters. Currently unemployed awaiting to begin D[employer]. Hx Alcohol Use: No Hx Tobacco Use: No Hx Substance Use: No Hx of Substance Use Treatment: No Family Psychiatric History Negative Allergies-Medications (Allergen,Severity, Reaction): Coded Allergies: peanut (Unverified Allergy, Unknown, 12/31/17) penicillin G (Unverified Allergy, Unknown, 12/31/17) Uncoded Allergies: SEAFOOD (Adverse Reaction, Mild, NAUSEA, 12/31/17) Reported Meds & Prescriptions Reported Meds & Active Scripts Active Reported Hydroxyzine HCl 10 Mg Tab Unknown Dose PO DIRECTED Review of Systems ROS Limitations: Psychotic Mental Status Examination Appearance: Appropriate (dressed in [facility] appears to be maintaining basic hygiene.) Consciousness: Alert Orientation: Person, Place Motor Activity: Normal gait Speech: Hesitant, Slow Language: Adequate Fund of Knowledge: Adequate (unable to evaluate) Attention and Concentration: Inadequate (internally preoccupied) Memory: Unremarkable (unable to assess) Mood: Appropriate Affect: Labile Thought Process & Associations: Disorganized Thought Content: Bizarre thinking, Thought blocking Hallucination Type: None (appears internally preoccupied) Delusion Type: None Suicidal Ideation: No Suicidal Plan: No Suicidal Intention: No Homicidal Ideation: No Homicidal Plan: No Homicidal Intention: No Insight: Poor Judgment: Poor MDM Medical Decision Making Medical Record Reviewed: Yes Assessment/Plan 22-year-old male with previous history of unspecified psychosis, 1 previous admission to [facility] in 2017, who presents initially as a voluntary for psychiatric evaluation. His mother and sister report the past 3 days he has been acting erratically, has not been sleeping, and making bizarre statements. The patient while in Jpod presented with marked disorganized thoughts, he was intrusive, crawling on the floor, praying and chanting over other patients and required ETO. He was placed under Owens act and will be admitted to inpatient psychiatry for further evaluation, for his safety, and for stabilization of symptoms. Orders Orders Complete Blood Count With Diff (12/31/17 09:50) Comprehensive Metabolic Panel (12/31/17 09:50) Thyroid Stimulating Hormone (12/31/17 09:50) Iv Access Insert/Monitor (12/31/17 09:50) Psych Screen (12/31/17 09:50) Drug Screen, Random Urine (12/31/17 09:50) Alcohol (Ethanol) (12/31/17 09:50) Olanzapine Inj (Zyprexa Inj) (12/31/17 10:00) Potassium Chloride (Kcl) (12/31/17 11:00) Potassium Chloride (Kcl) (12/31/17 18:00) Ziprasidone Inj (Geodon Inj) (12/31/17 15:15) Diphenhydramine Inj (Benadryl Inj) (12/31/17 15:15) Diet Regular Basic (12/31/17 Dinner) Results Vital Signs Date Time Temp Pulse Resp B/P (MAP) Pulse Ox O2 Delivery O2 Flow Rate FiO2 12/31/17 14:00 99.8 120 20 146/86 (106) 99 12/31/17 09:16 98.7 105 18 155/103 (120) 100 Laboratory Tests Test 12/31/17 10:07 12/31/17 10:08 Urine Opiates Screen NEG Urine Barbiturates Screen NEG Urine Amphetamines Screen NEG Urine Benzodiazepines Screen NEG Urine Cocaine Screen NEG Urine Cannabinoids Screen NEG White Blood Count 5.6 Red Blood Count 4.69 Hemoglobin 14.1 Hematocrit 41.5 Mean Corpuscular Volume 88.4 Mean Corpuscular Hemoglobin 30.1 Mean Corpuscular Hemoglobin Concent 34.1 Red Cell Distribution Width 12.9 Platelet Count 259 Mean Platelet Volume 7.7 Neutrophils (%) (Auto) 51.5 Lymphocytes (%) (Auto) 30.8 Monocytes (%) (Auto) 14.1 Eosinophils (%) (Auto) 2.8 Basophils (%) (Auto) 0.8 Neutrophils # (Auto) 2.9 Lymphocytes # (Auto) 1.7 Monocytes # (Auto) 0.8 Eosinophils # (Auto) 0.2 Basophils # (Auto) 0.0 CBC Comment DIFF FINAL Differential Comment Blood Urea Nitrogen 6 Creatinine 0.85 Random Glucose 92 Total Protein 8.1 Albumin 4.2 Calcium Level 8.5 Alkaline Phosphatase 54 Aspartate Amino Transf (AST/SGOT) 20 Alanine Aminotransferase (ALT/SGPT) 44 Total Bilirubin 0.5 Sodium Level 139 Potassium Level 3.1 Chloride Level 104 Carbon Dioxide Level 26.3 Anion Gap 9 Estimat Glomerular Filtration Rate 135 Thyroid Stimulating Hormone 3rd Gen 1.600 Ethyl Alcohol Level LESS THAN 3 Diagnosis Primary Impression: Acute psychosis Admitting Information Admitting Physician Requests: Admit Marifer ReyesP Dec 31, 2017 18:00
[2017-12-31 18:15] VITALS: BP 140/80; PULSE 93; RESP 20; O2SAT 100
[2017-12-31] MEDS ORDERED: ACETAMINOPHEN 325 MG TAB PO PRN (18:15)
[2017-12-31] MEDS ORDERED: ALUMINUM/MAGNESIUM/SIMETH 30 ML CUP PO PRN (18:15)
[2017-12-31] MEDS ORDERED: MAGNESIUM HYDROXIDE SUSP 30 ML CUP PO PRN (18:15)
[2017-12-31 21:36] VITALS: BP 158/94; PULSE 111; RESP 18; TEMP 99.9; O2SAT 98
[2018-01-01] MEDS ORDERED: diphenhydrAMINE HCL 50 MG/ML VIAL ONE (02:22)
[2018-01-01] MEDS ORDERED: OLANZapine IM 10 MG VIAL IM ONE ×3 (02:22→02:30)
[2018-01-01] MEDS ORDERED: ZIPRASIDONE MESYLATE 20 MG VIAL IM ONE ×2 (02:24→02:30)
[2018-01-01] MEDS ORDERED: diphenhydrAMINE HCL 50 MG/ML VIAL IM ONE (02:30)
[2018-01-01] MEDS ORDERED: BENZTROPINE MESYLATE 1 MG TAB PO PRN (11:00)
--- NOTE | 2018-01-01 11:19 | HHI.HP ---
Provisional Diagnosis Admission Date Dec 31, 2017 at 18:17 [place] I. Unspecified psychosis Certification of Person's Competence To Provide Express and Informed Consent I have personally examined Josafat SweetJr , a person being served at [facility] on, Jan 01, 2018 11:04. Express and informed consent means consent voluntarily given in writing, by a competent person, after sufficient explanation and disclosure of the subject matter involved to enable the person to make a knowing and willful decision without any element of force, fraud, deceit, duress, or other form of constraint or coercion. This person is 18 years of age or older, is not now known to be incompetent to consent to treatment with a guardian advocate, and does not have a health care surrogate or proxy currently making medical treatment decisions. I have found this person to be one of the following: [] Competent to provide express and informed consent, as defined above, for voluntary admission to this facility and is competent to provide express and informed consent for treatment. He/she has the consistent capacity to make well reasoned, willful, and knowing decisions concerning his or her medical or mental health treatment. The person fully and consistently understands the purpose of the admission for examination/placement and is fully capable of personally exercising all rights [place] [x] Incompetent to provide express and informed consent to voluntary admission, and this is incompetent to provide express and informed consent to treatment. The person must be transferred to involuntary status and a petition for a guardian advocate filed with the Circuit Court. [] Refusing to provide express and informed consent to voluntary admission but is competent to provide express and informed consent for treatment. The person must be discharged or transferred to involuntary status. Form shall be completed within 24 hours of a person's arrival at the receiving facility and filed in the clinical record of each person: 1. Admitted on a voluntary basis 2. Permitted to provide express and informed consent to his/her own treatment 3. Allowed to transfer from involuntary to voluntary status 4. Prior to permitting a person to consent to his or her own treatment after having been previously found incompetent to consent to treatment. History of Present Illness Capacity: Lacks Capacity HPI Patient is a 22-year-old -Serbian man, single, domiciled with parents, in college, unemployed, with a past psychiatric history of unspecified psychosis , one previous psychiatric admission at [facility] 2017, no previous suicide attempt or self-injurious behavior, no substance use history, past medical history significant only for asthma was brought into the ED by mother and sister for altered mental status, noted to have bizarre statements, responding to internal stimuli and was put under Owens act for the same and transferred to the inpatient psychiatry for further evaluation and management. As per ED note patient had not been sleeping, had been on Risperdal in the past and being followed by Dr. Wang outpatient psychiatrist. Upon psychiatric evaluation in the ED patient was noted to be crawling on the floor, chanting and singing, and making bizarre and nonsensical statements. Patient was found walking on the unit noted to be labile, during interview jumping onto the bed jumping off several times and required redirection. Patient noted to be disorganized and unable to engage effectively to interview as his disorganization impedes his recollection of his history. Patient states that he is fishing, during interview Answering yes and [place] as well as singing throughout interview. Patient denies any perceptual disturbances but noted to be internally preoccupied at times. Collateral contact obtained from patient's father Mr. Josafat Sweet Sr. [phone], reported the patient had a previous psychotic episode last year here at [facility] after stabilization has discontinue medications but was followed by Dr. Wang recently provided hydroxyzine as needed which he states had no effect. He also reports the patient has not been sleeping recently and had for the past month started having bizarre nonsensical statements courting TV shows but denies any perceptual disturbances. He reports the patient had finished his associates degree in college she was quite functional until recent. He reports that he had tried to have the patient's sleep hoping the patient's symptoms would resolve but as this did not have any effect on his behavior was brought into the hospital for further stabilization. Family psychiatric history: Unable to assess due to patient's level of disorganization Past psychiatric history: Psychosis as per chart, rule out schizophrenia versus schizoaffective disorder, 1 previous psychiatric admission in 2017 here at [facility], no previous suicide attempt or self interest behavior. I do not have previous history of abuse as patient unable to engage effectively in interview due to her disorganization. Substance use history: Denies Past medical history: Asthma Allergies: Penicillin as per chart Social history: Single, unemployed, and college, domiciled with parents. Review of Systems Except as stated in HPI: all other systems reviewed are Neg Past Psych History Psychological trauma history Unable to assess due to patient's level of disorganization Violence risk - others (6 mos) low Violence risk - self (6 mos) low Past Family Social History Coded Allergies: peanut (Unverified Allergy, Unknown, 12/31/17) penicillin G (Unverified Allergy, Unknown, 12/31/17) Uncoded Allergies: SEAFOOD (Adverse Reaction, Mild, NAUSEA, 12/31/17) Reported Medications Hydroxyzine HCl (Hydroxyzine HCl) 10 Mg Tab, PO DIRECTED, TAB 0 Refills 12/31/17 Discontinued Reported Medications Risperidone (Risperidone) 0.5 Mg Tab, 0.5 MG PO TID, #30 TAB 1 Refill 01/19/17 Benztropine (Benztropine) 2 Mg Tab, 2 MG PO DAILY Y for EXTRA PYRAMIDAL SYMPTOMS , #10 TAB 0 Refills 01/19/17 Discontinued Scripts Risperidone (Risperdal) 0.5 Mg Tab, 0.5 MG PO TID for Psychosis, #30 TAB 1 Refill Prov:Yoandy Lau MD 01/19/17 Benztropine (Benztropine) 2 Mg Tab, 2 MG PO DAILY Y for EXTRA PYRAMIDAL SYMPTOMS , #10 TAB 1 Refill Prov:Yoandy Lau MD 01/19/17 Current Medications Medications (Trade) Dose Ordered Sig/Paxton Route Start Time Stop Time Status Last Admin (Tylenol) 650 mg Q4H PRN PO 12/31/17 18:15 (Milk Of Magnesia Liq) 30 ml DAILY PRN PO 12/31/17 18:15 (Mag-Al Plus Susp Liq) 30 ml Q6H PRN PO 12/31/17 18:15 (risperDAL) 1 mg Q12HR PO 01/01/18 11:00 UNV (KlonoPIN) 0.5 mg Q12HR PO 01/01/18 11:00 UNV (Cogentin) 1 mg Q12HR PRN PO 01/01/18 11:00 UNV (Ativan) 1 mg Q6H PRN PO 01/01/18 11:00 UNV (Ambien) 5 mg HS PO 01/01/18 21:00 UNV Family Psych History Unable to assess due to patient's level of disorganization Social History Single, unemployed, and college, domiciled with parents. Patient's Strengths (min. 2) verbal and communicative Physical Exam Not noted to be in acute distress, no noted gross motor abnormalities, no tremor or EPS noted, no psychomotor agitation or retardation. Vital Signs Vital Signs Date Time Temp Pulse Resp B/P (MAP) Pulse Ox O2 Delivery O2 Flow Rate FiO2 12/31/17 21:36 99.9 111 18 158/94 (115) 98 12/31/17 18:15 Room Air Mental Status Examination Appearance: Appropriate (dressed in [facility] appears to be maintaining basic hygiene.) Consciousness: Alert Orientation: Person, Place Motor Activity: Normal gait Speech: Hesitant, Slow Language: Adequate Fund of Knowledge: Adequate (unable to evaluate) Attention and Concentration: Inadequate (internally preoccupied) Memory: Unremarkable (unable to assess) Mood: Appropriate Affect: Labile Thought Process & Associations: Disorganized Thought Content: Bizarre thinking, Thought blocking Hallucination Type: None (appears internally preoccupied) Delusion Type: None Suicidal Ideation: No Suicidal Plan: No Suicidal Intention: No Homicidal Ideation: No Homicidal Plan: No Homicidal Intention: No Insight: Poor Judgment: Poor Assessment & Plan Problem List: (1) Unspecified psychosis ICD Codes: F29 - Unspecified psychosis not due to a substance or known physiological condition Assessment & Plan Estimated LOS: 5-7 days. Patient is a 22-year-old -Serbian man who has a diagnosis of unspecified psychosis 1 previous psychiatric admission, no history of self-injurious behavior or suicide attempts, who was brought in under Owens act due to bizarre behavior, nonsensical statements and appearing internally preoccupied in the context of poor sleep which patient at this time requires inpatient psychiatric stabilization. Petition for involuntary hospitalization will be started, second opinion requested. Consent for treatment was obtained by patient's father via telephone as his father will be patient's health care surrogate and a guardian advocate during this hospitalization. We will start risperidone 1 mg p.o. twice daily for psychosis , clonazepam 0.5 mg p.o. every 12 and zolpidem 5 mg p.o. at bedtime for sleep disturbance. Continue rest of medications. Continue to monitor mood and behavior. Psychosocial intervention for psychosocial assessment, individual/ group therapy. Discharge planning in progress Discharge Planning Return back home to his parents residence once psychiatrically stable Jay Nair MD Jan 01, 2018 11:19
[2018-01-01] MEDS: clonazePAM 0.5 MG TAB PO SCH ×3 (12:13→23:54)
[2018-01-01] MEDS: risperiDONE 1 MG TAB PO SCH ×2 (12:13→20:12)
[2018-01-01 17:14] VITALS: BP 123/77; PULSE 100; RESP 18; TEMP 98.5; O2SAT 99
[2018-01-01] MEDS: ZOLPIDEM TARTRATE 5 MG TAB PO SCH (20:11)
[2018-01-01] MEDS: LORazepam 1 MG TAB PO PRN (23:54)
[2018-01-02 05:46] VITALS: BP 121/81; PULSE 98; RESP 20; TEMP 100; O2SAT 97
[2018-01-02] MEDS: clonazePAM 0.5 MG TAB PO SCH ×2 (08:49→20:19)
[2018-01-02] MEDS: risperiDONE 1 MG TAB PO SCH ×2 (08:49→20:19)
--- NOTE | 2018-01-02 10:54 | PD.PSY.CON ---
Provisional Diagnosis Admission Date Dec 31, 2017 at 18:17 Taylor I. Unspecified psychosis History of Present Illness Service Psychiatry Consult Requested By Psychiatry Reason for Consult 2nd Opinion Primary Care Physician Cory Rodriguez M.D. HPI Pt is a 22 YOAAM who was admitted to [facility] [place] a BA alleging erratic, bizarre behavior. Staff report that pt has been engaging in bizarre behavior with nonsensical pressured speech. Impulse control is very poor and he is quite manic. He has been singing loudly on unit and pacing while chanting "The Doctor is the Rule". Sleep is very poor and he only slept about 1-2 hours last night. 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 Staff state that this morning pt jumped on the tables in the day room. Family psychiatric history: Unknown Past psychiatric history: Psychosis as per chart, rule out schizophrenia versus schizoaffective disorder, 1 previous psychiatric admission in 2017 here at [facility], no previous suicide attempt or self interest behavior. Substance use history: Denies Past medical history: Asthma Allergies: Penicillin as per chart Social history: Single, unemployed, and college, domiciled with parents. Past Family Social History Coded Allergies: peanut (Unverified Allergy, Unknown, 12/31/17) penicillin G (Unverified Allergy, Unknown, 12/31/17) Uncoded Allergies: SEAFOOD (Adverse Reaction, Mild, NAUSEA, 12/31/17) Reported Medications Hydroxyzine HCl (Hydroxyzine HCl) 10 Mg Tab, PO DIRECTED, TAB 0 Refills 12/31/17 Discontinued Reported Medications Risperidone (Risperidone) 0.5 Mg Tab, 0.5 MG PO TID, #30 TAB 1 Refill 01/19/17 Benztropine (Benztropine) 2 Mg Tab, 2 MG PO DAILY Y for EXTRA PYRAMIDAL SYMPTOMS , #10 TAB 0 Refills 01/19/17 Discontinued Scripts Risperidone (Risperdal) 0.5 Mg Tab, 0.5 MG PO TID for Psychosis, #30 TAB 1 Refill Prov:Yoandy Lau MD 01/19/17 Benztropine (Benztropine) 2 Mg Tab, 2 MG PO DAILY Y for EXTRA PYRAMIDAL SYMPTOMS , #10 TAB 1 Refill Prov:Yoandy Lau MD 01/19/17 Current Medications Medications (Trade) Dose Ordered Sig/Paxton Route Start Time Stop Time Status Last Admin (Tylenol) 650 mg Q4H PRN PO 12/31/17 18:15 (Milk Of Magnesia Liq) 30 ml DAILY PRN PO 12/31/17 18:15 (Mag-Al Plus Susp Liq) 30 ml Q6H PRN PO 12/31/17 18:15 (risperDAL) 1 mg Q12HR PO 01/01/18 11:00 01/02/18 08:49 (KlonoPIN) 0.5 mg Q12HR PO 01/01/18 11:00 01/02/18 08:49 (Cogentin) 1 mg Q12HR PRN PO 01/01/18 11:00 (Ativan) 1 mg Q6H PRN PO 01/01/18 11:00 01/01/18 23:54 (Ambien) 5 mg HS PO 01/01/18 21:00 01/01/18 20:11 Patient's Strengths (min. 2) verbal and communicative Physical Exam Vital Signs Vital Signs Date Time Temp Pulse Resp B/P (MAP) Pulse Ox O2 Delivery O2 Flow Rate FiO2 01/02/18 05:46 100.0 98 20 121/81 (94) 97 12/31/17 18:15 Room Air Lab Results Test 01/02/18 10:00 Mental Status Examination Appearance: Appropriate (dressed in [facility] appears to be maintaining basic hygiene.) Consciousness: Alert Orientation: Person, Place Motor Activity: Normal gait Speech: Pressured Language: Adequate Fund of Knowledge: Adequate (unable to evaluate) Attention and Concentration: Inadequate (internally preoccupied) Memory: Unremarkable (unable to assess) Mood: Manic Affect: Labile Thought Process & Associations: Disorganized Thought Content: Bizarre thinking, Racing thoughts Hallucination Type: Other (appears internally stimulated) Delusion Type: Bizarre (Believes he is Dr. Who) Suicidal Ideation: No Suicidal Plan: No Suicidal Intention: No Homicidal Ideation: No Homicidal Plan: No Homicidal Intention: No Insight: Poor Judgment: Poor Assessment & Plan Problem List: (1) Unspecified psychosis ICD Codes: F29 - Unspecified psychosis not due to a substance or known physiological condition Assessment & Plan I agree that pt meets criteria for involuntary hospitalization due to severe psychosis. Estimated LOS: days Alicia Salas MD Jan 02, 2018 10:54
[2018-01-02 10:57] LABS: BICARBONATE 26.7 MEQ/L (21.0-32.0); BLOOD UREA NITROGEN 17 MG/DL (7-18); CALCIUM 9.5 MG/DL (8.5-10.1); CHLORIDE 102 MEQ/L (98-107); CREATININE 1.01 MG/DL (0.60-1.30); GLOMERULAR FILTRATION RATE 111 ML/MIN (>89); GLUCOSE,RANDOM 91 MG/DL (74-106); SODIUM (NA) 137 MEQ/L (136-145)
[2018-01-02 10:59] LABS: CHOLESTEROL 95 MG/DL (120-200); CHOLESTEROL/ HDL RATIO 2.09 RATIO; HDL CHOLESTEROL 45.4 MG/DL (40.0-60.0); LDL CHOLESTEROL 41 MG/DL (0-99); TRIGLYCERIDES 42 MG/DL (42-150)
[2018-01-02 12:40] LABS: HEMOGLOBIN A1C 5.2 % (4.3-6.0)
[2018-01-02] MEDS: LORazepam 1 MG TAB PO PRN ×2 (15:07→21:40)
[2018-01-02 16:00] VITALS: BP 121/81; PULSE 98; RESP 20; TEMP 100; O2SAT 97
--- NOTE | 2018-01-02 17:41 | EKG ---
Date Performed: 01/01/2018 Time Performed: 12:47:43 PTAGE: 22 years EKG: SINUS TACHYCARDIA ABNORMAL RHYTHM ECG NO PREVIOUS TRACING DOCTOR: Allen Sarmiento Interpretating Date/Time 01/02/2018 17:40:56
[2018-01-02] MEDS: ZOLPIDEM TARTRATE 5 MG TAB PO SCH (20:19)
[2018-01-03] MEDS ORDERED: HALOPERIDOL LACTATE 5 MG/ML AMP ONE (02:01)
[2018-01-03] MEDS ORDERED: LORazepam 2 MG/ML VIAL ONE (02:02)
[2018-01-03] MEDS ORDERED: LORazepam 2 MG/ML VIAL IM ONE (02:15)
[2018-01-03] MEDS ORDERED: HALOPERIDOL LACTATE 5 MG/ML AMP IM ONE (02:15)
[2018-01-03 05:52] VITALS: BP 138/79; PULSE 114; RESP 17; TEMP 97.7; O2SAT 100
[2018-01-03] MEDS: clonazePAM 0.5 MG TAB PO SCH ×2 (08:42→20:25)
[2018-01-03] MEDS: risperiDONE 1 MG TAB PO SCH (08:42)
[2018-01-03] MEDS: LORazepam 1 MG TAB PO PRN (13:51)
--- NOTE | 2018-01-03 16:39 | HHI.PYPN ---
Subjective Remarks Patient seen for follow up; chart reviewed. Discussion with nursing staff reported that the patient continues to be disorganized, showered today, noted to be responding to internal stimuli. Patient found ambulating in the unit, noted to be calm and cooperative. Patient noted to have a towel around his waist and states that he is wearing it because it is to keep his pants up. Patient states he is feeling tired there was encouraged to try to sleep at night which he states "cannot sleep at night it's all about the love". Patient continued to be noticed to be somewhat disorganized but able to engage slightly better than initial presentation. Patient denied hallucinations or visual hallucinations but when was asked about why he was talking to his sister at the door he states that he believes this was trapped inside the bathroom. Patient denied any paranoia but does state that the media was chasing him for a story. Review of Systems Except as stated in HPI: all other systems reviewed are Neg Mental Status Examination Appearance: Appropriate (dressed in [facility] appears to be maintaining basic hygiene.) Consciousness: Alert Orientation: Person, Place Motor Activity: Normal gait Speech: Pressured Language: Adequate Fund of Knowledge: Inadequate Attention and Concentration: Easily Distracted Memory: Impaired Mood: Manic Affect: Labile Thought Process & Associations: Disorganized Thought Content: Bizarre thinking, Racing thoughts Hallucination Type: Other (appears internally stimulated) Delusion Type: Bizarre (Believes he is Dr. Who) Suicidal Ideation: No Suicidal Plan: No Suicidal Intention: No Homicidal Ideation: No Homicidal Plan: No Homicidal Intention: No Insight: Poor Judgment: Poor Results Vitals/IOs Vital Signs Date Time Temp Pulse Resp B/P (MAP) Pulse Ox O2 Delivery O2 Flow Rate FiO2 01/03/18 05:52 97.7 114 17 138/79 (98) 100 12/31/17 18:15 Room Air Assessment & Plan Problem List: (1) Unspecified psychosis ICD Codes: F29 - Unspecified psychosis not due to a substance or known physiological condition Assessment & Plan Patient at this time continues to be noted to be disorganized, labile, responding to internal stimuli. Patient required ETO last evening as he again was jumping on top of beds not allowing other patients to sleep at night. We will increase risperidone to 1 mg a.m. and 2 mg at bedtime, increase Ambien to 10 mg at bedtime. Continue to monitor mood and behavior. Discharge planning in progress. Justification for Cont. Inpt. At risk for further decompensation at lower level of care Jay Nair MD Jan 03, 2018 16:39
[2018-01-03 17:12] VITALS: BP 127/76; PULSE 108; RESP 18; TEMP 98.2; O2SAT 100
[2018-01-03] MEDS: ZOLPIDEM TARTRATE 10 MG TAB PO SCH (20:25)
[2018-01-03] MEDS ORDERED: risperiDONE 1 MG TAB PO SCH (21:00)
[2018-01-04] MEDS: LORazepam 1 MG TAB PO PRN (00:45)
[2018-01-04 05:30] VITALS: BP 130/76; PULSE 94; RESP 16; TEMP 96.7; O2SAT 99
[2018-01-04] MEDS: risperiDONE 1 MG TAB PO SCH ×2 (09:00→20:43)
[2018-01-04] MEDS: clonazePAM 0.5 MG TAB PO SCH ×2 (09:00→20:42)
[2018-01-04] MEDS ORDERED: risperiDONE 1 MG TAB PO SCH (09:00)
--- NOTE | 2018-01-04 14:00 | HHI.PYPN ---
Subjective Remarks Patient is here for follow, chart reviewed. Discussion nursing staff reported the patient last evening he received ETO as he was noted to be jumping on top of beds and disturbing other patients. Patient was also noted to be somewhat sedated this morning but noted to be talking to self. Patient was found hallway was directed back to his room for interview as he appeared to be sedated. Patient continued to be somewhat disorganized stating that he needed to find another patient to give her a hug. Patient also was noted later to be attempting to jump in the hallway but was too sedated to be able to do this effectively. He continues to have some disorganization along with perceptual disturbances Review of Systems Except as stated in HPI: all other systems reviewed are Neg Mental Status Examination Appearance: Appropriate (dressed in [facility] appears to be maintaining basic hygiene.) Consciousness: Somnolent Orientation: Person, Place Motor Activity: Normal gait Speech: Pressured Language: Adequate Fund of Knowledge: Inadequate Attention and Concentration: Easily Distracted Memory: Impaired Mood: Manic Affect: Labile Thought Process & Associations: Disorganized Thought Content: Bizarre thinking, Racing thoughts Hallucination Type: Other (appears internally stimulated) Delusion Type: Bizarre (Believes he is Dr. Who) Suicidal Ideation: No Suicidal Plan: No Suicidal Intention: No Homicidal Ideation: No Homicidal Plan: No Homicidal Intention: No Insight: Poor Judgment: Poor Results Vitals/IOs Vital Signs Date Time Temp Pulse Resp B/P (MAP) Pulse Ox O2 Delivery O2 Flow Rate FiO2 01/04/18 05:30 96.7 94 16 130/76 (94) 99 12/31/17 18:15 Room Air Intake and Output 01/04/18 01/04/18 01/05/18 08:00 16:00 00:00 Intake Total 180 ml Balance 180 ml Assessment & Plan Problem List: (1) Unspecified psychosis ICD Codes: F29 - Unspecified psychosis not due to a substance or known physiological condition Assessment & Plan Patient at this time continues to have disorganization but less labile due to sedating effects of recent medication changes as well as ETO that he received last evening. Labs continue to be pending. Due to little sedation is unclear whether secondary to recent CT or less evening or current standing regimen. We will decrease clonazepam to 0.25 mg a.m./0.5 mg at bedtime. Continue to monitor mood and behavior. Continue to encourage patient to maintain good hydration as well as nutritional p.o. intake. Discharge planning in progress. Justification for Cont. Inpt. At risk for further decompensation if at lower level of care Jay Nair MD Jan 04, 2018 14:00
[2018-01-04 16:43] LABS: BICARBONATE 26.2 MEQ/L (21.0-32.0); CALCIUM 8.6 MG/DL (8.5-10.1); CREATININE 0.73 MG/DL (0.60-1.30)
[2018-01-04 18:11] VITALS: BP 138/71; PULSE 96; RESP 18; TEMP 98.2
[2018-01-04] MEDS: ZOLPIDEM TARTRATE 10 MG TAB PO SCH (20:43)
[2018-01-05 06:12] VITALS: BP 144/83; PULSE 135; RESP 18; TEMP 97.9
[2018-01-05] MEDS: risperiDONE 1 MG TAB PO SCH ×2 (08:29→20:04)
[2018-01-05] MEDS: clonazePAM 0.5 MG TAB PO SCH ×2 (08:30→20:04)
--- NOTE | 2018-01-05 09:23 | PD.CONS ---
HPI Service [facility] Hospitalists Consult Requested By Dr. Nair Reason for Consult Elevated CK and CKMB Primary Care Physician Cory Rodriguez M.D. Diagnoses: History of Present Illness This a 22-year-old male patient with a past medical history which includes asthma. Patient is currently in inpatient psychiatric center after presenting to the hospital on December 31, 2017 with psychosis. We have been consulted due to elevated CK and CK-MB. Patient is a poor and unreliable historian information gathered from patient as well as prior computerized charting. It appears the patient has had several IM injections while staying in the inpatient psychiatric center. Patient offers no complaints at this time. Review of Systems ROS Limitations: Clinical Condition, Altered Mental Status Past Family Social History Past Medical History Asthma Past Surgical History No prior surgeries reported Reported Medications Hydroxyzine HCl 10 Mg Tab Unknown Dose PO DIRECTED Allergies: Coded Allergies: peanut (Unverified Allergy, Unknown, 12/31/17) penicillin G (Unverified Allergy, Unknown, 12/31/17) Uncoded Allergies: SEAFOOD (Adverse Reaction, Mild, NAUSEA, 12/31/17) Family History Reviewed and noncontributory Social History Patient is currently attending college lives with parents Denies EtOH use tobacco use or illicit drug use Physical Exam Vital Signs Vital Signs Date Time Temp Pulse Resp B/P (MAP) Pulse Ox O2 Delivery O2 Flow Rate FiO2 01/05/18 06:12 97.9 135 18 144/83 (103) 01/04/18 18:11 98.2 96 18 138/71 (93) Physical Exam GENERAL: This is a well-nourished, well-developed patient, currently cooperative and appears to be in no acute distress SKIN: No rashes, ecchymoses or lesions. Cool and dry. HEAD: Atraumatic. Normocephalic. No temporal or scalp tenderness. EYES: Extraocular motions intact. No scleral icterus. No injection or drainage. CARDIOVASCULAR: Regular rate and rhythm RESPIRATORY: Clear to auscultation. Breath sounds equal bilaterally. GASTROINTESTINAL: Abdomen soft, non-tender, nondistended. MUSCULOSKELETAL: Extremities without clubbing, cyanosis, or edema. No joint tenderness, effusion, or edema noted. No calf tenderness. Negative Homans sign bilaterally. NEUROLOGICAL: Awake and alert. No focal deficits. Motor and sensory grossly within normal limits. Five out of 5 muscle strength in all muscle groups. Normal speech. Laboratory Laboratory Tests Test 01/04/18 15:38 Blood Urea Nitrogen 8 Creatinine 0.73 Random Glucose 72 Calcium Level 8.6 Sodium Level 138 Potassium Level 3.7 Chloride Level 102 Carbon Dioxide Level 26.2 Anion Gap 10 Estimat Glomerular Filtration Rate 161 Total Creatine Kinase 3575 Creatine Kinase MB 11.6 Creatine Kinase MB % 0.3 Result Diagram: 01/04/18 7210 Assessment and Plan Problem List: (1) Elevated CK ICD Codes: R74.8 - Abnormal levels of other serum enzymes Plan: This a 22-year-old male patient with a past medical history which includes asthma. Patient is currently an inpatient psychiatric center after presenting to the hospital on December 31, 2017 with acute psychosis. We have been consulted due to elevated CK and CK-MB. Patient is a poor and unreliable historian information gathered from patient as well as prior computerized charting. It appears the patient has had several IM injections while in the inpatient psychiatric center. IM injections likely causing the elevation CK and CK-MB Encourage fluid intake Recheck CK and CK-MB STAT and recheck CK, CK-MB as well as BMP in a.m., if the levels do not trend down patient may need IV fluids (2) Elevated CK-MB level ICD Codes: R74.8 - Abnormal levels of other serum enzymes Plan: See above (3) Acute psychosis ICD Codes: F23 - Brief psychotic disorder Status: Acute Plan: Management per inpatient psychiatric team Assessment and Plan Patient examined. Assessment and plan formulated with Corrie Sue PA-C. I agree with the above. Corrie Sue Jan 05, 2018 09:22 Jayden Kidd DO Jan 10, 2018 00:50
--- NOTE | 2018-01-05 14:33 | HHI.PYPN ---
Subjective Remarks Patient seen for follow-up, chart reviewed. Discussion nursing staff reported patient continues to wander into other people's rooms at times belligerent requiring redirection. Patient was seen by hospitalist consult and will have CK rechecked in the a.m. but encouraged to increase p.o. fluid intake. Patient was found lying in hospital bed. To be sleeping and able to interact minimally due to patient's somnolence. Patient states sleeping well, denies any physical complaints at this time reports eating and drinking without any difficulty abdominally. Patient reports tolerating medication well. Review of Systems Except as stated in HPI: all other systems reviewed are Neg Mental Status Examination Appearance: Appropriate (dressed in [facility] appears to be maintaining basic hygiene.) Consciousness: Somnolent Orientation: Person, Place Motor Activity: Normal gait Speech: Pressured Language: Adequate Fund of Knowledge: Inadequate Attention and Concentration: Easily Distracted Memory: Impaired Mood: Manic Affect: Labile Thought Process & Associations: Disorganized Thought Content: Bizarre thinking, Racing thoughts Hallucination Type: Other (appears internally stimulated) Delusion Type: Bizarre (Believes he is Dr. Who) Suicidal Ideation: No Suicidal Plan: No Suicidal Intention: No Homicidal Ideation: No Homicidal Plan: No Homicidal Intention: No Insight: Poor Judgment: Poor Results Labs labs reviewed Test 01/04/18 15:38 01/05/18 09:00 Blood Urea Nitrogen 8 MG/DL Creatinine 0.73 MG/DL Random Glucose 72 MG/DL Calcium Level 8.6 MG/DL Sodium Level 138 MEQ/L Potassium Level 3.7 MEQ/L Chloride Level 102 MEQ/L Carbon Dioxide Level 26.2 MEQ/L Anion Gap 10 MEQ/L Estimat Glomerular Filtration Rate 161 ML/MIN Total Creatine Kinase 3575 U/L 2918 U/L Creatine Kinase MB 11.6 NG/ML 6.3 NG/ML Creatine Kinase MB % 0.3 % 0.2 % Vitals/IOs Vital Signs Date Time Temp Pulse Resp B/P (MAP) Pulse Ox O2 Delivery O2 Flow Rate FiO2 01/05/18 06:12 97.9 135 18 144/83 (103) 01/04/18 05:30 99 Assessment & Plan Problem List: (1) Unspecified psychosis ICD Codes: F29 - Unspecified psychosis not due to a substance or known physiological condition Assessment & Plan Patient of this time continues to be disorganized and at times noted to be internally preoccupied. We will continue current treatment regimen as patient appears to startle response to this. Continue to monitor mood and behavior. Continue to encourage patient to increase p.o. fluid intake. We will continue to trend CK levels. Discharge planning in progress. Justification for Cont. Inpt. At risk for further decompensation if at lower level of care. Discharge Planning Patient to return back to his residence once psychiatrically stable. Jay Nair MD Jan 05, 2018 14:33
[2018-01-05 17:29] VITALS: BP 137/78; PULSE 121; RESP 18; TEMP 98.3; O2SAT 98
[2018-01-05] MEDS: ZOLPIDEM TARTRATE 10 MG TAB PO SCH (20:04)
[2018-01-05] MEDS: LORazepam 1 MG TAB PO PRN (20:04)
[2018-01-05 21:27] VITALS: BP 122/62; PULSE 118; RESP 16; TEMP 97.3; O2SAT 99
[2018-01-06 05:53] VITALS: BP 144/79; PULSE 104; RESP 18; TEMP 96.8; O2SAT 99
[2018-01-06 06:50] LABS: CREATININE 0.86 MG/DL (0.60-1.30)
[2018-01-06] MEDS: risperiDONE 1 MG TAB PO SCH (08:16)
[2018-01-06] MEDS: clonazePAM 0.5 MG TAB PO SCH (08:16)
[2018-01-06] MEDS ORDERED: POTASSIUM CHLORIDE 20 MEQ CONTROLLED RELEASE TAB PO ONE (09:15)
[2018-01-06] MEDS ORDERED: RISP2TAB2 PO (11:20)
[2018-01-06] MEDS ORDERED: AMBI10TA PO (11:20)
[2018-01-06] MEDS ORDERED: CLON.5 PO ×2 (11:20)
--- NOTE | 2018-01-06 11:24 | HHI.DS ---
Psychiatry Discharge Summary Inpatient Psychiatric care?: Yes Advance Directive: No Reason Not Provided: REFUSES Mental Health AdvanceDirective: No Health Care Proxy: No Admission Admission Date Dec 31, 2017 at 18:17 Admission Diagnosis: (1) Unspecified psychosis ICD Code: F29 - Unspecified psychosis not due to a substance or known physiological condition Brief History Pt is a 22 YOAAM who was admitted to [facility] [place] [facility] under a BA alleging erratic, bizarre behavior. Staff report that pt has been engaging in bizarre behavior with nonsensical pressured speech. Impulse control is very poor and he is quite manic. He has been singing loudly on unit and pacing while chanting "The Doctor is the Rule". Sleep is very poor and he only slept about 1-2 hours last night. 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 Staff state that this morning pt jumped on the tables in the day room. Family psychiatric history: Unknown Past psychiatric history: Psychosis as per chart, rule out schizophrenia versus schizoaffective disorder, 1 previous psychiatric admission in 2017 here at [place], no previous suicide attempt or self interest behavior. Substance use history: Denies Past medical history: Asthma Allergies: Penicillin as per chart Social history: Single, unemployed, and college, domiciled with parents. Tobacco Use In Past 30 Days: No Tobacco Past 30 Days Alcohol Use: Never Hospital Course Patient is a 22-year-old -[place] man, single, domiciled with parents, in college, unemployed, with a past psychiatric history of unspecified psychosis , one previous psychiatric admission at [place] 2017, no previous suicide attempt or self-injurious behavior, no substance use history, past medical history significant only for asthma was brought into the ED by mother and sister for altered mental status, noted to have bizarre statements, responding to internal stimuli and was put under [place] act for the same and transferred to the inpatient psychiatry for further evaluation and management. Patient was started on risperidone and titrated to 1mg AM/2mg HSPO BID, clonazepam 0.5mg PO BID and decreased to 0.25mgAM/0.5mg HS, zolpidem 10mg PO HS which patient tolerated well. He was noted to be acutely psychotic, with poor impulse control, poor sleep but with continued treatment adjustments patient began to sleep more, not requiring ETOs, redirectible, but continued to have some disorganized behavior. He had poor insight into his symptoms but was adherent to treatment. Patient denied any SI nor any HI during hospitalization but continued with some bizarre behavior at times. Patient presented to mental health court which he was determined to no longer fulfill criteria for further involuntary psychiatric admission and discharged through the court despite recommendations for patient continuing on inpatient unit for further stabilization. Upon discharge patient stated that he was feeling alright and was encouraged to continue treatment to avoid re-hospitalization and to return back to adequate function. He denied any SI, HI or perceptual disturbances. Patient agreed to continue medication regimen and outpatient follow up for continuity of care. I have counseled the patient regarding warning signs for need to return to the psychiatric emergency room as part of a general safety plan. Patient advised to call 911 or go nearest ED in case of emergency. Patient agrees with plan. Results Blood Pressure 144 / 79 Vital Signs Date Time Temp Pulse Resp B/P (MAP) Pulse Ox O2 Delivery O2 Flow Rate FiO2 01/06/18 05:53 96.8 104 18 144/79 (100) 99 Laboratory Tests Test 01/04/18 15:38 01/05/18 09:00 01/06/18 05:35 Random Glucose 72 MG/DL (74-106) Total Creatine Kinase 3575 U/L (39-308) 2918 U/L (39-308) 1852 U/L (39-308) Creatine Kinase MB 11.6 NG/ML (0.5-3.6) 6.3 NG/ML (0.5-3.6) 5.9 NG/ML (0.5-3.6) Blood Urea Nitrogen 6 MG/DL (7-18) Sodium Level 133 MEQ/L (136-145) Potassium Level 3.4 MEQ/L (3.5-5.1) Chloride Level 97 MEQ/L (98-107) Laboratory Results Test 01/02/18 10:00 Cholesterol Level 95 MG/DL (120-200) HDL Cholesterol 45.4 MG/DL (40.0-60.0) Hemoglobin A1c 5.2 % (4.3-6.0) LDL Cholesterol 41 MG/DL (0-99) Triglycerides Level 42 MG/DL (42-150) Summary of Procedures none Pending results at discharge: No Medications # of Antipsychotic meds at D/C: 1 Approp Antipsych med options 1 - Minimum of three failed multiple trials of monotherapy. 2 - Documented plan to taper to monotherapy due to previous use of multiple meds OR cross-taper in progress at D/C. 3 - Documentation of augmentation of Clozapine. 4 - Justification other than those listed in allowable values 1-3, document here : Discharge Discharge Date: Jan 06, 2018 Discharge Diagnosis: (1) Unspecified psychosis ICD Code: F29 - Unspecified psychosis not due to a substance or known physiological condition Pt Condition on Discharge: Stable Discharge Disposition: Discharge Home Discharge Instructions Diet Instructions: As Tolerated, No Restrictions Activities you can perform: Regular-No Restrictions Discharge Time > 30 minutes Mental Status Examination Appearance: Appropriate (dressed in hospital [facility] appears to be maintaining basic hygiene.) Consciousness: Somnolent Orientation: Person, Place Motor Activity: Normal gait Speech: Pressured Language: Adequate Fund of Knowledge: Inadequate Attention and Concentration: Easily Distracted Memory: Impaired Mood: Manic (decreasing) Affect: Labile (decreasing) Thought Process & Associations: Disorganized (lessening) Thought Content: Bizarre thinking, Racing thoughts (lessening) Hallucination Type: Other (appears internally stimulated) Delusion Type: Bizarre (Believes he is DrMerna Champagne) Suicidal Ideation: No Suicidal Plan: No Suicidal Intention: No Homicidal Ideation: No Homicidal Plan: No Homicidal Intention: No Insight: Poor Judgment: Poor Discharge/Advance Care Plan Health Problems: (1) Unspecified psychosis Goals to promote your health * To prevent worsening of your condition and complications * To maintain your health at the optimal level Directions to meet your goals Take your medications as prescribed Follow your dietary instruction Follow activity as directed Keep your appointments as scheduled Take your immunizations and boosters as scheduled If your symptoms worsen call your PCP, if no PCP go to Urgent Care Center or Emergency Room For 14/06 questions related to your inpatient stay or results of tests pending at discharge, please contact Dr. Jay Nair at Smoking is Dangerous to Your Health. Avoid second hand smoking Jay Nair MD Jan 06, 2018 11:23
--- NOTE | 2018-01-06 14:41 | EKG ---
Date Performed: 01/05/2018 Time Performed: 17:34:13 PTAGE: 22 years EKG: SINUS TACHYCARDIA POSSIBLE RIGHT VENTRICULAR CONDUCTION DELAY POSSIBLE LVH RATE AND VOLTAGE BORDERLINE FOR AGE ABNORMAL RHYTHM ECG CLINICAL CORRELATION IS RECOMMENDED PREVIOUS TRACING : 01/01/2018 12.47 DOCTOR: Gian Bueno Interpretating Date/Time 01/06/2018 14:35:19
== END 2018-01-06 16:02 | disposition home or self-care (01) | DRG 885 ==
LOC: NEPD 09:14 → NEDA 18:17 → H270 21:03
PROVIDERS: ADMIT Student in an Organized Health Care Education/Training Program; ATTEND Student in an Organized Health Care Education/Training Program
DX: F29 Unspecified psychosis not due to a substance or known physiological condition (principal); R74.8 Abnormal levels of other serum enzymes
CPT/HCPCS: 80048; 80053; 80061; 80307; 82550; 82552; 83036; 84443; 85025; 93005; 96372; J1200; J1630; J2060; J3230; J3486